=== PATIENT | female | born 1965 | race Caucasian/White ===

== ENCOUNTER → 2017-06-17 | Outpatient (CLI) | payer BC ==
[2005-01-07 06:28] VITALS: PULSE 91; TEMP 97.4
== END ==
LOC: MC.RAD 09:00
DX: Z12.31 Encounter for screening mammogram for malignant neoplasm of breast (principal)

== ENCOUNTER → 2018-07-31 | Outpatient (CLI) | payer BC ==
[2005-01-07 06:28] VITALS: PULSE 91; TEMP 97.4
== END ==
LOC: MC.RAD 14:29
DX: Z12.31 Encounter for screening mammogram for malignant neoplasm of breast (principal)

== ENCOUNTER → 2019-09-10 | Outpatient (CLI) | payer BC ==
[2005-01-07 06:28] VITALS: PULSE 91; TEMP 97.4
== END ==
LOC: MC.RAD 14:45
DX: Z12.31 Encounter for screening mammogram for malignant neoplasm of breast (principal); N63.20 Unspecified lump in the left breast, unspecified quadrant

== ENCOUNTER → 2019-09-13 | Outpatient (CLI) | payer BC ==
[2005-01-07 06:28] VITALS: PULSE 91; TEMP 97.4
== END ==
LOC: MC.RAD 13:49
DX: Z12.31 Encounter for screening mammogram for malignant neoplasm of breast (principal); N60.02 Solitary cyst of left breast

== ENCOUNTER → 2020-09-12 | Outpatient (CLI) | payer BC ==
[2005-01-07 06:28] VITALS: PULSE 91; TEMP 97.4
== END ==
LOC: MC.RAD 09:29
DX: Z12.31 Encounter for screening mammogram for malignant neoplasm of breast (principal)

== ENCOUNTER → 2021-12-08 | Outpatient (CLI) | payer BC ==
[2005-01-07 06:28] VITALS: TEMP 97.4
== END ==
LOC: MC.RAD 14:45
DX: Z12.31 Encounter for screening mammogram for malignant neoplasm of breast (principal)

== ENCOUNTER → 2023-12-30 | Outpatient (CLI) | payer BC ==
[2005-01-07 06:28] VITALS: PULSE 91; TEMP 97.4
== END ==
LOC: MC.RAD 11:29
DX: Z12.31 Encounter for screening mammogram for malignant neoplasm of breast (principal)